=== PATIENT | male | born 1970 | race Caucasian/White ===

== ENCOUNTER → 2023-07-31 | Outpatient (CLI) | payer BC ==
[2023-07-31 13:04] LABS: BASOPHILS ABSOLUTE AUTO 0.06 K/mm3 (0.00-0.23); BASOPHILS PERCENT AUTO 1 % (0-2); EOSINOPHILS ABSOLUTE AUTO 0.08 K/mm3 (0.00-0.68); EOSINOPHILS PERCENT AUTO 2 % (0-6); Hematocrit 49.4 % (37.0-53.0); Hemoglobin 17.3 g/dL (13.5-17.5); IMMATURE GRAN ABSOLUTE AUTO 0.01 K/mm3 (0.00-0.10); IMMATURE GRAN PERCENT AUTO 0 % (0-1); LYMPHOCYTES ABSOLUTE AUTO 0.78 K/mm3 (0.84-5.20); LYMPHOCYTES PERCENT AUTO 18 % (21-46); MONOCYTES ABSOLUTE AUTO 0.43 K/mm3 (0.16-1.47); MONOCYTES PERCENT AUTO 10 % (4-13); Mean Corpuscular HGB 32.8 pg (26.0-34.0); Mean Corpuscular Volume 94 fL (80-100); Mean Platelet Volume 11.3 fL (9.1-12.4); NEUTROPHILS ABSOLUTE AUTO 2.99 K/mm3 (1.96-9.15); NEUTROPHILS PERCENT AUTO 69 % (41-73); Platelet Count 212 K/mm3 (150-400); RDW Coefficient Variation 12.3 % (11.7-14.2); RDW Standard Deviation 42.7 fL (35.1-46.3); Red Blood Cell Count 5.27 M/mm3 (4.30-5.90); White Blood Cell Count 4.35 K/mm3 (4.00-11.30)
[2023-07-31 14:31] LABS: Albumin, Blood 3.7 g/dL (3.4-5.0); Bilirubin, Total 0.5 mg/dL (0.1-1.0); Calcium, Blood 8.7 mg/dL (8.5-10.1); Creatinine, Blood 0.67 mg/dL (0.60-1.20); Free Thyroxine 1.11 ng/dL (0.70-1.60); Globulin, Blood 3.8 g/dL (2.2-4.0); Potassium, Blood 3.7 mmol/L (3.5-5.5); Thyroid Stimulating Hormone 1.93 uIU/mL (0.360-4.800); Total Protein, Blood 7.5 g/dL (6.4-8.2); Uric Acid, Blood 6.8 mg/dL (3.5-7.2)
== END ==
LOC: LAB SHORT 12:14 → LAB 12:14
PROVIDERS: Family Medicine
DX: I10 Essential (primary) hypertension (principal); M10.9 Gout, unspecified; R63.4 Abnormal weight loss
CPT/HCPCS: 80053; 84439; 84443; 84550; 85025

== ENCOUNTER 2024-01-31 21:32 | Inpatient (IN) | payer BC ==
[~2024-01-31] VITALS: Ht 177.8 cm; Wt 93.8 kg
[2024-01-31 22:02] LABS: BASOPHILS ABSOLUTE AUTO 0.04 K/mm3 (0.00-0.23); BASOPHILS PERCENT AUTO 0 % (0-2); EOSINOPHILS ABSOLUTE AUTO 0.12 K/mm3 (0.00-0.68); EOSINOPHILS PERCENT AUTO 1 % (0-6); Hematocrit 52.5 % (37.0-53.0); Hemoglobin 18.3 g/dL (13.5-17.5); IMMATURE GRAN ABSOLUTE AUTO 0.04 K/mm3 (0.00-0.10); IMMATURE GRAN PERCENT AUTO 0 % (0-1); LYMPHOCYTES ABSOLUTE AUTO 0.83 K/mm3 (0.84-5.20); LYMPHOCYTES PERCENT AUTO 8 % (21-46); MONOCYTES ABSOLUTE AUTO 1.03 K/mm3 (0.16-1.47); MONOCYTES PERCENT AUTO 10 % (4-13); Mean Corpuscular HGB 32.2 pg (26.0-34.0); Mean Corpuscular HGB Conc 34.9 g/dL (31.5-36.5); Mean Corpuscular Volume 92 fL (80-100); Mean Platelet Volume 11.5 fL (9.1-12.4); NEUTROPHILS ABSOLUTE AUTO 8.63 K/mm3 (1.96-9.15); NEUTROPHILS PERCENT AUTO 81 % (41-73); Platelet Count 287 K/mm3 (150-400); RDW Coefficient Variation 12.3 % (11.7-14.2); RDW Standard Deviation 41.7 fL (35.1-46.3); Red Blood Cell Count 5.69 M/mm3 (4.30-5.90); White Blood Cell Count 10.69 K/mm3 (4.00-11.30)
[2024-01-31 22:20] LABS: Albumin, Blood 3.7 g/dL (3.4-5.0); Albumin/Globulin Ratio 0.7 (0.8-1.8); Bilirubin, Total 1.5 mg/dL (0.1-1.0); Bun/Creatinine Ratio 15.8 (12.0-20.0); Creatinine, Blood 0.76 mg/dL (0.60-1.20); Potassium, Blood 4.4 mmol/L (3.5-5.5); Total Protein, Blood 8.7 g/dL (6.4-8.2)
[2024-01-31] MEDS ORDERED: MAGCIT300 PO (22:28)
[2024-01-31] MEDS ORDERED: SENNA LAXATIVE8.6 MG PO (22:28)
[2024-01-31] MEDS ORDERED: TADA10TA (22:29)
[2024-01-31] MEDS ORDERED: Acetaminophen500 MG PO (22:29)
[2024-01-31] MEDS ORDERED: ALLO300 PO (22:29)
[2024-01-31] MEDS ORDERED: OXYC5 PO (22:30)
[2024-02-01] MEDS ORDERED: Ondansetron HCl 2 MG / ML 2ML Vial IV ONE (00:55)
[2024-02-01] MEDS ORDERED: NS 1,000 ML IV SCH ×2 (02:10→03:23)
[2024-02-01] MEDS ORDERED: FentaNYL Citrate 50 MCG/ML 2 ML Injection IV ONE (02:10)
[2024-02-01] MEDS ORDERED: Ondansetron HCl 2 MG / ML 2ML Vial IV PRN (02:30)
[2024-02-01] MEDS ORDERED: FentaNYL Citrate 50 MCG/ML 2 ML Injection IV PRN (02:30)
[2024-02-01 04:18] LABS: Source, Urine Clean Catch
[2024-02-01 04:20] LABS: Bilirubin, Urine Neg (Neg); Blood, Urine 1+ (Neg); Glucose Qualitative, Urine Neg (Neg); Ketones, Urine 2+ (Neg); Leukocyte Esterase, Urine 1+ (Neg); Nitrite, Urine Neg (Neg); Protein, Urine 2+ (Neg); Urobilinogen, Urine NORM (Normal)
[2024-02-01 04:26] LABS: BASOPHILS ABSOLUTE AUTO 0.03 K/mm3 (0.00-0.23); BASOPHILS PERCENT AUTO 0 % (0-2); EOSINOPHILS ABSOLUTE AUTO 0.11 K/mm3 (0.00-0.68); EOSINOPHILS PERCENT AUTO 1 % (0-6); Hemoglobin 17.1 g/dL (13.5-17.5); IMMATURE GRAN ABSOLUTE AUTO 0.05 K/mm3 (0.00-0.10); IMMATURE GRAN PERCENT AUTO 1 % (0-1); LYMPHOCYTES ABSOLUTE AUTO 0.97 K/mm3 (0.84-5.20); LYMPHOCYTES PERCENT AUTO 9 % (21-46); MONOCYTES ABSOLUTE AUTO 0.99 K/mm3 (0.16-1.47); MONOCYTES PERCENT AUTO 9 % (4-13); Mean Corpuscular HGB 31.5 pg (26.0-34.0); Mean Corpuscular HGB Conc 34.2 g/dL (31.5-36.5); Mean Corpuscular Volume 92 fL (80-100); Mean Platelet Volume 11.1 fL (9.1-12.4); NEUTROPHILS PERCENT AUTO 80 % (41-73); Platelet Count 293 K/mm3 (150-400); RDW Coefficient Variation 12.2 % (11.7-14.2); RDW Standard Deviation 41.8 fL (35.1-46.3); Red Blood Cell Count 5.42 M/mm3 (4.30-5.90); White Blood Cell Count 11.05 K/mm3 (4.00-11.30)
[2024-02-01 04:29] LABS: Color, Urine Yellow (P-Yellow)
[2024-02-01 04:30] LABS: Appearance, Urine Clear (Clear)
[2024-02-01 04:31] LABS: Bacteria Not Seen /hpf; Mucus Light (0-Heavy); Red Blood Cells, Urine 0-2 /hpf (0-2); Squamous Epithelial Cells Not Seen /hpf (Few); White Blood Cells, Urine 0-2 /hpf (0-5)
[2024-02-01 04:46] LABS: Albumin, Blood 3.4 g/dL (3.4-5.0); Albumin/Globulin Ratio 0.7 (0.8-1.8); Bilirubin, Total 1.2 mg/dL (0.1-1.0); Bun/Creatinine Ratio 17.5 (12.0-20.0); Calcium, Blood 9.8 mg/dL (8.5-10.1); Creatinine, Blood 0.74 mg/dL (0.60-1.20); Globulin, Blood 4.6 g/dL (2.2-4.0)
[2024-02-01 04:52] VITALS: BP 133/88
[2024-02-01 07:32] VITALS: BP 136/96
--- NOTE | 2024-02-01 08:37 | NUR ---
RECIEVED PT WITH DISTENTION, ADMISSION ASSESSMENT INITIATED, [address] MCMILLAN PRESENTED AT BEDSIDE ORDERS RECIEVED FOR NG, DISCUSSED STARTING NG WITH PAIN MEDS PT AND WANT TO START AFTER RECIEVING NAUSEA MEDICATION PRIOR TO NG ISSERTION, MEDS DUE AT AM SHIFT, REPORTED PLAN TO CHARGE AND AM NURSE AT SHIFT. PT MADE COMFORTABLE WITH POSITIONING AND WARM BLANKETS, AT BEDSIDE. FALL PRECAUTIONS INN PLACE, CALL LIGHT AT BEDSIDE.
--- NOTE | 2024-02-01 09:15 | NUR ---
NG TUBE PLACEMENT- BUSINESS ANALYST MANAGER AND THIS RN PLACED NG TUBE FOR PT. PT FOLLOWED INSTRUCTIONS AND SWALLOWED WELL WHILE TUCKING HIS CHIN. HE DID GAG A FEW TIMES. GREEN BILE IMMIDIATLY FLOWED UP THT TUBE ONCE IT WAS FULLY INSERTED, CHEST XR ORDERED PER PROTOCOL TO ENSURE PROPER PLACEMENT PRIOR TO CONNECTING TO LOW INTERMITTENT SUCTION. PT WAS CONVERSING WITH STAFF CLEARLY ONCE TUBE WAS COMPLETELY PLACED AND THERE WERE NO SIGNS OF RESPIRATORY DISTRESS. DR FRANK AT THE BEDSIDE AT THE TIME OF THE STAT CHEST XR AND SHE CONFIRMED THE PLACEMENT OF THE TUBE AND OK'D STAFF TO CONNECT TO SUCTION.
[2024-02-01 16:53] VITALS: BP 126/82
[2024-02-01] MEDS ORDERED: Acetaminophen 650 MG Supp PR PRN (17:10)
[2024-02-01] MEDS ORDERED: Acetaminophen 160MG / 5ML 10.15 UDC PO PRN ×2 (17:15→23:00)
[2024-02-01] MEDS ORDERED: D5W-NS 1,000 ML IV SCH (18:25)
--- NOTE | 2024-02-01 18:27 | NUR ---
SHIFT SUMMARY- PT ALERT AND ORIENTED, HE HAS AN NG TUBE IN PLACE THAT IS CURRENTLY CLAMPED. IT WILL BE RECONNECTED TO LOW INTERMITTENT SUCTION ONCE THE PT FINISHES HIS WALK AND IT HAS BEEN 30 MINUTES SINCE TYLENOL ADMINISTRATION. PT WAS ABLE TO GET OOB AND TO THE BATHROOM, WHERE HE VOIDED 500ML OF DARK ORANGE URINE AND PASSED A LARGE SINGLE FLATTUS WITH A TINY BIT OF LIQUID STOOL. PT SPOUSE WALKED WITH HIM, HE IS A LITTLE UNSTEADY ON HIS FEET SO WAS USING A WALKER FOR ASSISTANCE. 5 LAP SITES WERE PAINFULL FOR HIM WITH STANDING. PLACED ABD BINDER TO HELP WITH THE PAIN. PT STATES IT IS IMPROVED WITH THE BINDER, ORDER TO USE WHEN AMBULATING. PT HAS RETURNED FROM THE SMALL WALK AND IS BACK IN THE ROOM, NO S&S OF DISTRESS AT THIS TIME.
[2024-02-01 19:25] VITALS: BP 141/94
[2024-02-02 02:55] VITALS: BP 144/94
[2024-02-02 05:39] LABS: BASOPHILS ABSOLUTE AUTO 0.04 K/mm3 (0.00-0.23); BASOPHILS PERCENT AUTO 0 % (0-2); EOSINOPHILS ABSOLUTE AUTO 0.25 K/mm3 (0.00-0.68); EOSINOPHILS PERCENT AUTO 3 % (0-6); Hematocrit 45.6 % (37.0-53.0); Hemoglobin 15.7 g/dL (13.5-17.5); IMMATURE GRAN ABSOLUTE AUTO 0.02 K/mm3 (0.00-0.10); IMMATURE GRAN PERCENT AUTO 0 % (0-1); LYMPHOCYTES ABSOLUTE AUTO 0.74 K/mm3 (0.84-5.20); LYMPHOCYTES PERCENT AUTO 8 % (21-46); MONOCYTES ABSOLUTE AUTO 1.29 K/mm3 (0.16-1.47); MONOCYTES PERCENT AUTO 13 % (4-13); Mean Corpuscular HGB Conc 34.4 g/dL (31.5-36.5); Mean Corpuscular Volume 93 fL (80-100); Mean Platelet Volume 10.8 fL (9.1-12.4); NEUTROPHILS ABSOLUTE AUTO 7.46 K/mm3 (1.96-9.15); NEUTROPHILS PERCENT AUTO 76 % (41-73); Platelet Count 254 K/mm3 (150-400); RDW Coefficient Variation 12.5 % (11.7-14.2); RDW Standard Deviation 42.9 fL (35.1-46.3); Red Blood Cell Count 4.91 M/mm3 (4.30-5.90)
[2024-02-02 06:10] LABS: Bun/Creatinine Ratio 21.4 (12.0-20.0); Calcium, Blood 8.6 mg/dL (8.5-10.1); Creatinine, Blood 0.65 mg/dL (0.60-1.20); Magnesium, Blood 2.1 mg/dL (1.6-2.4); Phosphorus, Blood 3.2 mg/dL (2.5-4.9); Potassium, Blood 3.7 mmol/L (3.5-5.5)
[2024-02-02 07:45] VITALS: BP 130/84
--- NOTE | 2024-02-02 08:28 | NUR ---
SHIFT SUMMARY PT IS A&OX4. VSS ON RA. PER TELEMETRY, PT IS SR 80'S-90'S. C/O PAIN IN HIS RIGHT SIDE OF ABD, MEDICATED WITH IV FENTANYL. PT REMAINS NPO, WITH ICECHIPS. NG TUBE TO LIS, 200 ML OUT IN BILIOUS DRAINAGE. PT VOIDED 350 ML THIS AM FOR THE FIRST TIME THIS SHIFT. DARK, CONCENTRATED LEXIE, MALODOROUS URINE. SMALL LIQUID BM X1 THIS SHIFT. X1 ASSIST TO HELP GET OOB AND LINE MANAGEMENT. BED IN LOWEST POSITION, CALL LIGHT WITHIN REACH.
--- NOTE | 2024-02-02 15:00 | NUR ---
SHIFT SUMMARY PT AWAKE DURING SHIFT REPORT. A&O, PLEASANT AND CO-OP WITH CARE. NGT TO LIS WITH MINIMAL OUTPUT THIS AM. PT THEN REQUESTING TO GO FOR WALK IN HALLS; NGT CLAMPED AND IV SITE SL. IMAGING THEN CAME FOR F/U ABD XRAY; PT TAKEN DOWN VIA W/C. IVF'S AND NGT RESTARTED WHEN PT RETURNED. DR FRANK IN TO SEE PT; NEW ORDERS PLACED. PT TO HAVE ICE WATER AND ICE CHIPS. PT TOLERATED WELL. PT REQUESTING DIET ADVANCED; DR FRANK NOTIFIED. FULL LIQUID DIET ORDERED. NGT TO BE D/C'D. PT UP TO BTHRM HAVING LRG BM. DR FRANK LATER RETURNED TO INFORM PT THAT HE SHOULD STAY ONE MORE NIGHT PER ABD XRAY RESULT. PT UP AMBULATING IN RM AND IN HALLS. TOLERATING DIET WELL. MEDICATED X1 WITH TYLENOL EARLY IN SHIFT, D/T NGT THROAT PAIN. PT REPORTING MEDICATION EFFECTIVE. PT UP AGAIN HAVING ANOTHER LRG BM. REPORTS STILL DOING WELL. DENIES FURTHER NEEDS AT THIS TIME. CALL LT IN REACH. PT'S AT BS.
[2024-02-02 15:35] VITALS: BP 134/92
--- NOTE | 2024-02-02 18:25 | NUR ---
SHIFT SUMMARY- NO ACUTE CHANGE SINCE ASSUMING CARE OF PT. PT DID REQUEST AND RECIEVE TYLENOL FOR PAIN.
[2024-02-02 20:51] VITALS: BP 128/84
--- NOTE | 2024-02-03 06:12 | NUR ---
Shift Summary No acute changes. Pt ambulating twice tonight per MD recommendation. He is requesting only tylenol for 7/10 abdominal pain and not opiods per MD recommendation. at the bedside t/o the night, he was able to sleep comfortably t/o most of the night. Bowel sounds are hypoactive. Pt was going to attempt a BM around 0100, I'm unsure if he did. Pt is AOx4, independent in the room, states he is tolerating full liquid diet well.
[2024-02-03 07:33] VITALS: BP 129/80
[2024-02-03 15:05] VITALS: BP 140/90
--- NOTE | 2024-02-03 19:18 | NUR ---
SHIFT SUMMARY PT INDEPENDENT IN ROOM WITH . REPORTS PASSING LOTS OF GAS WITH SEDIMENTARY RECTAL DISCHARGE. TAKING TYLENOL FOR ABDOMENAL DISCOMFORT. TOLERATING FULL LIQUID DIET. REMAINS WITH ABDOMENAL BLOATING
[2024-02-03 21:28] VITALS: BP 140/86
[2024-02-04 03:43] VITALS: BP 134/84
--- NOTE | 2024-02-04 04:01 | NUR ---
SURGICAL TECH SUMMARY VSS. ALERT AND ORIENTED, AT BEDSIDE FOR COMFORT. BOWEL SOUNDS LIGHT, BUT DISCERNABLE TO AUSCULTATION. UP TO BATHROOM A FEW TIMES, PT REPORTED PASSING GAS AND ALSO HAD 2 BM'S. BM'S INCLUDING "CHUNKS" OF FECES. VOICED FEELING BETTER HE AMBULATED ABOUT HALLWAY. TYLENOL PO X 2 SO FAR THIS SHIFT FOR ABD PAIN. ABD INCISIONS INTACT. HAS BEEN RESTING QUIETLY WITH FEW INTERRUPTIONS. CALL LIGHT IN REACH, RAILS UP X 2 AND BED IN LOW POSITION FOR SAFETY. WILL CONTINUE TO MONITOR.
[2024-02-04 07:16] VITALS: BP 125/79
[2024-02-04 15:00] VITALS: BP 129/89
--- NOTE | 2024-02-04 16:11 | NUR ---
PATIENT DISCHARGED TO HOME ACCOMPANIED BY HIS . IV SALINE LOCK REMOVED WITHOUT INCIDENT. VERBALIZED UNDERSTANDING OF D/C INSTRUCTIONS. OFF UNIT VIA W/C AT 5553. NO PERSONAL BELONGINGS LEFT BEHIND IN ROOM.
== END 2024-02-04 15:44 | disposition home or self-care (01) | DRG 394 ==
LOC: ER 21:32 → MEDS 21:33
PROVIDERS: Internal Medicine; Physician Assistant; Student in an Organized Health Care Education/Training Program; ADMIT Internal Medicine
PROC: 0D9670Z Drainage of Stomach with Drainage Device, Via Natural or Artificial Opening (ICD-10-PCS; principal; 2024-02-01)
DX: K91.89 Other postprocedural complications and disorders of digestive system (principal); K56.7 Ileus, unspecified; M10.9 Gout, unspecified; Y83.8 Other surgical procedures as the cause of abnormal reaction of the patient, or of later complication, without mention of misadventure at the time of the procedure; Z90.5 Acquired absence of kidney; Z85.528 Personal history of other malignant neoplasm of kidney; Z79.899 Other long term (current) drug therapy; Z79.891 Long term (current) use of opiate analgesic
CPT/HCPCS: 36415; 71045; 74018; 74177; 80048; 80053; 81001; 83605; 83735; 83880; 84100; 85025; 87040; 96361; 96374-59; 96375; 99285-25; A9270; G0378; J2405; J3010; J7030; J7042; Q9967